=== PATIENT | female | born 1995 | race Caucasian/White ===

== ENCOUNTER 2021-09-04 03:09 | Inpatient (IN) ==
[2021-09-04] MEDS ORDERED: BUTORPHANOL 2 MG/ML VIAL IV ONE (04:07)
[2021-09-04] MEDS ORDERED: LACTATED RINGERS 1,000 ML IV ONE (04:07)
[2021-09-04] MEDS ORDERED: MEPERIDINE 50 MG/1 ML VIAL IV PRN (04:49)
[2021-09-04] MEDS ORDERED: METHYLERGONOVINE 0.2 MG/1 ML AMP IM PRN (04:49)
[2021-09-04] MEDS ORDERED: OXYTOCIN/LR 20 UNIT/1,000 ML BAG IV ONE ×2 (04:49→12:27)
[2021-09-04] MEDS ORDERED: ACETAMINOPHEN 500 MG TABLET PO PRN (04:49)
[2021-09-04] MEDS ORDERED: TRANEXAMIC ACID 1,000 MG in SODIUM CHLORIDE 0.9% 100 ML IV PRN (04:49)
[2021-09-04] MEDS ORDERED: miSOPROStoL 200 MCG TABLET RECTAL PRN (04:49)
[2021-09-04] MEDS ORDERED: LACTATED RINGERS 500 ML IV PRN (04:49)
[2021-09-04] MEDS ORDERED: ONDANSETRON 4 MG/2 ML VIAL IV PRN ×2 (04:49→12:27)
[2021-09-04] MEDS ORDERED: BUTORPHANOL 2 MG/ML VIAL IV PRN (04:49)
[2021-09-04] MEDS ORDERED: CARBOPROST TROMETHAMINE 250 MCG/ML AMP IM PRN (04:49)
[2021-09-04] MEDS ORDERED: LACTATED RINGERS 250 ML IV ONE (04:49)
[2021-09-04] MEDS ORDERED: LACTATED RINGERS 1,000 ML IV SCH (05:00)
[2021-09-04 06:00] LABS: Basophils % 0.2 % (0.0-0.8); Eosinophils % 0.1 % (0.00-10.9); Hematocrit 36.1 VOL% (35.7-47.0); Hemoglobin 11.9 GM/DL (12.0-16.0); Immature Granulocytes % 0.6 %; Immature Granulocytes Absolute 0.09 #; Lymphocytes # 1.2 10*3/uL (1.4-4.0); Lymphocytes % 7.5 % (21.3-54.2); Mean Corpuscular Volume 89.6 FL (87-102); Mean Platelet Volume 10.9 FL (9.6-12.0); Monocytes # 0.6 10*3/uL (0.11-0.8); Monocytes % 3.7 % (1.7-12.7); Neutrophils % 87.9 % (38.7-73.9); Platelet Count 268 T/CUMM (130-400); Red Blood Count 4.03 MC/CUMM (3.8-5.5); Red Cell Distribution Width 13.3 % (9.3-17.3); White Blood Count 15.8 T/CUMM (4-12)
[2021-09-04 06:24] LABS: Alanine Aminotransferase 21 U/L (13-56); Albumin 2.7 G/DL (3.4-5.0); Alkaline Phosphatase 191 U/L (45-117); Aspartate Amino Transferase 20 U/L (0-37); Bilirubin,Total < 0.39 MG/DL (0.20-1.00); Blood Urea Nitrogen 10 MG/DL (7-18); Carbon Dioxide 22 MMOL/L (21-32); Chloride 104 MMOL/L (98-107); Glucose 90 MG/DL (74-106); Osmolality,Calculated 268.1 MOS/KG (273-304); Potassium 3.2 MMOL/L (3.5-5.1); Sodium 135 MMOL/L (136-145); Total Protein 6.7 G/DL (6.4-8.2)
[2021-09-04] MEDS ORDERED: OXYTOCIN/LR 20 UNIT/1,000 ML BAG IV SCH (07:04)
[2021-09-04] MEDS ORDERED: diphenhydrAMINE 50 MG/1 ML VIAL IV PRN ×2 (07:07)
[2021-09-04] MEDS ORDERED: ePHEDrine 50 MG/ML VIAL IV PRN (07:07)
[2021-09-04] MEDS ORDERED: ONDANSETRON 4 MG/2 ML VIAL IV ONE (07:07)
[2021-09-04] MEDS ORDERED: PROMETHAZINE 25 MG/1 ML VIAL IM ONE (07:07)
[2021-09-04] MEDS ORDERED: FAMOTIDINE 20 MG/2 ML VIAL IV ONE (07:07)
[2021-09-04] MEDS ORDERED: hydrOXYzine HCL 25 MG/1 ML VIAL IM PRN (07:07)
[2021-09-04] MEDS ORDERED: NALOXONE 0.4 MG/ML VIAL IV PRN (07:07)
[2021-09-04] MEDS ORDERED: CITRIC ACID/SODIUM CITRATE 30 ML UDCUP PO ONE (07:07)
[2021-09-04] MEDS ORDERED: fentaNYL 2 MCG/ROPIV 0.2% EPID 100 ML EPIDURAL SCH (07:30)
[2021-09-04 09:27] LABS: Mucus,Urine Moderate /LPF (Occasional); RBC,Urine 2 /HPF (0-4)
[2021-09-04 09:28] LABS: Bilirubin,Urine Negative (Negative); Blood, Urine Negative (Negative); Glucose,Urine (UA) Negative (Negative); Ketones,Urine 15 mg/dL (Negative); Nitrite,Urine Negative (Negative); Protein,Urine Negative (Negative); Urine Appearance Clear (Clear); Urine Color Yellow (Yellow); Urine Specific Gravity 1.025 (1.001-1.035); Urine Urobilinogen 0.2 eU/dL (<2.0)
[2021-09-04 12:20] LABS: Cord Venous Blood HCO3 22.1 MMOL/L; Cord Venous Blood PO2 32.2
[2021-09-04] MEDS ORDERED: WITCH HAZEL PADS 100/JAR TOP PRN (12:27)
[2021-09-04] MEDS ORDERED: LANOLIN 50% CREAM 0.3 OZ TUBE TOP PRN (12:27)
[2021-09-04] MEDS ORDERED: HYDROCORTISONE 2.5% RECTAL CREAM 30 GM TUBE TOP PRN (12:27)
[2021-09-04] MEDS ORDERED: BISACODYL 10 MG SUPP RECTAL PRN (12:27)
[2021-09-04] MEDS ORDERED: oxyCODONE/ACETAMINOPHEN 5-325 MG TABLET PO PRN (12:27)
[2021-09-04] MEDS ORDERED: ACETAMINOPHEN 325 MG TABLET PO PRN (12:27)
[2021-09-04] MEDS ORDERED: DIPH/TET/ACEL PERT BOOSTER VACCINE 0.5 ML VIAL IM ONE (13:00)
[2021-09-04] MEDS ORDERED: RHO(D) IMMUNE GLOBULIN 300 MCG SYRINGE IM ONE (13:00)
[2021-09-04] MEDS ORDERED: MEASLES/MUMPS/RUBELLA VACCINE 0.5 ML VIAL SUBCUT ONE (13:00)
[2021-09-04] MEDS: BENZOCAINE 20%/MENTHOL 0.5% SPRAY 56 GM CAN TOP PRN (19:00)
[2021-09-04] MEDS: oxyCODONE/ACETAMINOPHEN 5-325 MG TABLET PO PRN (19:44)
[2021-09-04] MEDS: POTASSIUM CHLORIDE 20 MEQ TABLET PO PRN ×3 (19:46→23:48)
[2021-09-04] MEDS: DOCUSATE SODIUM 100 MG CAPSULE PO SCH (21:44)
[2021-09-04] MEDS: IBUPROFEN 800 MG TABLET PO PRN (21:49)
[2021-09-05] MEDS: POTASSIUM CHLORIDE 20 MEQ TABLET PO PRN (02:14)
[2021-09-05 07:54] LABS: Basophils % 0.2 % (0.0-0.8); Eosinophils # 0.1 10*3/uL (0.0-0.87); Eosinophils % 0.3 % (0.00-10.9); Hematocrit 32.9 VOL% (35.7-47.0); Hemoglobin 10.9 GM/DL (12.0-16.0); Immature Granulocytes % 0.7 %; Immature Granulocytes Absolute 0.12 #; Lymphocytes # 2.4 10*3/uL (1.4-4.0); Lymphocytes % 13.7 % (21.3-54.2); Mean Corpuscular HGB Conc 33.1 GM/DL (32-36); Mean Corpuscular Volume 90.4 FL (87-102); Mean Platelet Volume 10.2 FL (9.6-12.0); Monocytes # 0.7 10*3/uL (0.11-0.8); Monocytes % 4.1 % (1.7-12.7); Platelet Count 264 T/CUMM (130-400); Red Blood Count 3.64 MC/CUMM (3.8-5.5); Red Cell Distribution Width 13.9 % (9.3-17.3); White Blood Count 17.2 T/CUMM (4-12)
[2021-09-05] MEDS: MULTIVITAMIN (PRENATAL) TABLET PO SCH (09:58)
[2021-09-05] MEDS: DOCUSATE SODIUM 100 MG CAPSULE PO SCH ×2 (09:58→20:58)
[2021-09-05] MEDS: IBUPROFEN 800 MG TABLET PO PRN ×2 (10:27→18:13)
[2021-09-05] MEDS: BENZOCAINE 20%/MENTHOL 0.5% SPRAY 56 GM CAN TOP PRN (20:58)
[2021-09-06] MEDS: IBUPROFEN 800 MG TABLET PO PRN (06:16)
[2021-09-06] MEDS: oxyCODONE/ACETAMINOPHEN 5-325 MG TABLET PO PRN (06:17)
[2021-09-06 07:21] VITALS: BP 113/67
[2021-09-06] MEDS: DOCUSATE SODIUM 100 MG CAPSULE PO SCH (09:03)
[2021-09-06] MEDS: MULTIVITAMIN (PRENATAL) TABLET PO SCH (09:03)
== END 2021-09-06 12:30 | disposition home or self-care (01) | DRG 560 ==
LOC: N.OBOUT 03:09 → N.LD 03:11 → N.OB 14:30
PROVIDERS: ADMIT Specialist; ATTEND Specialist